=== PATIENT | female | born 1970 | race Caucasian/White ===

== ENCOUNTER → 2017-02-19 | Outpatient (CLI) | payer BC | END | disposition disaster alternative care site (69) | LOC: GRAD 17:25 | DX: R07.81 Pleurodynia (principal); R79.1 Abnormal coagulation profile ==

== ENCOUNTER → 2017-02-24 | Outpatient (CLI) | payer BC | END | disposition disaster alternative care site (69) | LOC: GRAD 07:43 | DX: M25.561 Pain in right knee (principal); R60.9 Edema, unspecified ==

== ENCOUNTER → 2017-02-27 | Outpatient (CLI) | payer BC | END | disposition disaster alternative care site (69) | LOC: GRAD 10:44 | DX: R10.11 Right upper quadrant pain (principal) | CPT/HCPCS: A9537 ==